=== PATIENT | male | born 1990 | race Caucasian/White ===

== ENCOUNTER 2019-07-17 11:26 | Emergency (ER) | payer MEDICAID ==
[2019-07-17] MEDS ORDERED: Lidocaine 1% MPF ** 5 ML VIAL INJ ONE (11:42)
--- NOTE | 2019-07-17 11:43 | ED ---
Upper Extremity Pain - HPI Summary HPI Summary: This patient is a 28 year old male presenting to [facility] with a chief complaint of rigth hand pain since 2 days ago. He states he burned his right index finger on the grill, got angry, and punched a cabinet with the same hand. He states he feels hand pain around his knuckles. He states he is up to date on tetanus. Medications reviewed, allergies noted. - History of Current Complaint Chief Complaint: EDExtremityUpper Stated Complaint: RT HAND INJ PER PT Time Seen by Provider: 07/17/19 11:36 Hx Obtained From: Patient Mechanism Of Injury: Blunt Trauma Onset/Duration: Started Days Ago Timing: Constant Pain Location: Hand - Allergies/Home Medications Allergies/Adverse Reactions: Allergies Allergy/AdvReac Type Severity Reaction Status Date / Time No Known Allergies Allergy Verified 07/17/19 11:36 Home Medications: Home Medications Dextroamphetamine/Amphetamine [Dextroamp-Amphet ER 20 mg Cap] 40 mg PO DAILY [History Confirmed 07/17/19] PMH/Surg Hx/FS Hx/Imm Hx Cardiovascular History: Denies: Hx Coronary Artery Disease Respiratory History: Denies: Hx Asthma GI History: Denies: Hx Diverticulosis Infectious Disease History: No Infectious Disease History: Denies: Traveled Outside the [place] in Last 30 Days - Family History Known Family History: Positive: Cardiac Disease, Diabetes - In grandparents - Social History Alcohol Use: Weekly Substance Use Type: Reports: Marijuana Smoking Status (MU): Current Every Day Smoker Review of Systems Positive: Other - Right hand pain Positive: Other - Burn on index finger All Other Systems Reviewed And Are Negative: Yes Physical Exam - Summary Physical Exam Summary: Constitutional: Well-developed, Well-nourished, Alert, Cooperative Skin: Warm, Dry HENT: Normocephalic; No Racoons eyes; No cai's sign; No abrasion; No contusion; No hemotympanum; No maxilla facial tenderness or instability; Dentition are smooth; No dental trauma; No trismus Eyes: EOM normal, PERRL Neck: Trachea is midline. No stridor; No JVD; No step off; No posterior cervical spine tenderness Cardio: Rhythm regular, rate normal Heart sounds normal; Intact distal pulses. Radial pulses are 2+ and symmetric. Pulmonary/Chest wall: Effort normal; Breath sounds normal; Equal chest rise; No flail segment; No rib tenderness; No sternal tenderness Abd: Soft, Appearance normal. No distension; No tenderness; No palpable pulsatile mass; No Cullens sign; No Layne-Turners sign Musculoskeletal: Full ROM and no tenderness at hips, ankles, shoulders, elbows and knees; No joint swelling; No vertebral body tenderness; No paraspinal tenderness; No step off or deformity of the spine; Pelvis is stable to lateral compression and rock Neuro: Alert, Oriented x3, Strength 5/5 all extremities. : No blood at urethral meatus Psych: Mood and affect Normal Triage Information Reviewed: Yes Vital Signs On Initial Exam: Initial Vitals Temp Pulse Resp BP Pulse Ox 97.3 F 108 16 126/94 97 07/17/19 11:33 07/17/19 11:33 07/17/19 11:33 07/17/19 11:33 07/17/19 11:33 Vital Signs Reviewed: Yes Procedures - Procedure Summary Procedure Summary: 8 CCs lidocaine 1% on a digital block of right index finger. Scissor used to debride the blister and bacitracin was applied to the wound.. - Sedation Patient Received Moderate/Deep Sedation with Procedure: No - Splinting Right Upper Extremity Hand-Made Type: Gutter Splint: ulnar Pre-Proc Neuro Vasc Exam: normal Post-Proc Neuro Vasc Exam: normal, unchanged from pre-exam Diagnostics - Vital Signs Vital Signs Temp Pulse Resp BP Pulse Ox 07/17/19 11:33 97.3 F 108 16 126/94 97 - Laboratory Lab Statement: Any lab studies that have been ordered have been reviewed, and results considered in the medical decision making process. - Radiology Hand XR Radiology Interpretation Completed By: Radiologist Summary of Radiographic Findings: Comminuted fracture base of the fifth metacarpal. ED Provider has reviewed this report. Course/Dx - Course Course Of Treatment: Patient is here to partial-thickness burn of his index finger. Patient had debridement of his finger with bacitracin applied. Patient also has a proximal fifth metacarpal phalangeal joint fracture that is not angulated. Patient is placed in a ulnar gutter splint and given hand surgery follow-up. - Diagnoses Provider Diagnoses: Fracture of metacarpal, Partial thickness burn of index finger Discharge ED - Sign-Out/Discharge Documenting (check all that apply): Patient Departure - Discharge - Discharge Plan Condition: Stable Disposition: HOME Patient Education Materials: Hand Fracture (ED) Referrals: Stan Roth MD [Medical Doctor] - 3 Days Additional Instructions: Follow up with Orthopedics in 1-3 days. - Billing Disposition and Condition Condition: STABLE Disposition: Home - Attestation Statements Document Initiated by Scribe: Yes Documenting Scribe: Stan Moran Provider For Whom Scribe is Documenting (Include Credential): Crispin Sal MD Scribe Attestation: Stan Stratton, scribed for Crispin Sal MD on 07/17/19 at 1258. Scribe Documentation Reviewed: Yes Provider Attestation: The documentation as recorded by the Stan wadsworth accurately reflects the service I personally performed and the decisions made by , Crispin Sal MD Status of Scribe Document: Viewed
[2019-07-17] MEDS ORDERED: Bacitracin OINTMENT* 0.5% 0.5 oz TUBE TOPICAL ONE (11:57)
[2019-07-17 12:46] VITALS: BP 134/85
== END 2019-07-17 12:44 | disposition home or self-care (01) ==
LOC: ED 11:26
DX: S62.306A Unspecified fracture of fifth metacarpal bone, right hand, initial encounter for closed fracture (principal); T23.021A Burn of unspecified degree of single right finger (nail) except thumb, initial encounter; T31.0 Burns involving less than 10% of body surface; X15.8XXA Contact with other hot household appliances, initial encounter; Y92.9 Unspecified place or not applicable; F17.200 Nicotine dependence, unspecified, uncomplicated; Z79.899 Other long term (current) drug therapy
CPT/HCPCS: 16020; 99282; A9270-GY